=== PATIENT | male | born 1975 | race African-American/Black ===

== ENCOUNTER 2019-12-16 19:17 | Emergency (ER) | payer SELFPAY ==
[2019-12-16 19:23] VITALS: BP 163/109; PULSE 99; RESP 20; TEMP 37.7; O2SAT 98
[2019-12-16 19:50] LABS: Add Urine Microscopic? YES; Amorphous Sediment Urine Few; Appearance Urine Cloudy (Clear); Bacteria Urine Trace /hpf; Bilirubin Urine Negative (Negative); Blood Urine 2+ (Negative); Color Urine Yellow (Yellow); Glucose Urine UA Negative (Negative); Ketones Urine Negative (Negative); Leukocyte Esterase Ur 3+ LEU/UL (Negative); Nitrate Urine Negative (Negative); Protein Urine 3+ mg/dL (Negative); RBC Urine >75 /hpf (0-2); Specific Grav Ur 1.024 (1.001-1.035); Urobilinogen Urine Negative mg/dL (<2.0); WBC Clumps Urine Present /HPF; WBC Urine >75 /hpf
--- NOTE | 2019-12-16 20:02 | ED.ABDPAIN ---
HPI - Abdominal Pain General Chief Complaint: Abdominal Pain Stated Complaint: Abd Pain Time Seen by Provider: 12/16/19 19:59 Source: patient and RN notes reviewed Mode of arrival: other Limitations: no limitations History of Present Illness HPI narrative: Pt is a 44 y/o male who presents to the ED with c/o lower abdominal burning pain that radiates to his bilateral flanks and to his groin. He states that his pain began two days ago. He notes that he had a normal BM today. He states that he had unprotected sex with multiple partners and he states that his girlfriend is also having abdominal pain. Pt also reports nausea, dysuria, dark colored urine with hematuria, urinary retention, urinary urgency, chills, diaphoresis, and poor appetite, but denies a fever, vomiting, penile discharge, diarrhea, constipation, back pain, testicular pain, testicular swelling, blood in his stools, and testicular sores. MD elicited complaint: abdominal pain Onset (ago): day(s) (2) Pain Consistency: constant Location: other (lower) Quality: burning Radiation: L flank, R flank and other (groin) Context: confirms other (unprotected sex with multiple partners) Associated symptoms: nausea, chills, dysuria, hematuria (with dark colored urine) and other (urinary retention, urinary urgency, diaphoresis, poor appetite) Related Data Allergies Allergy/AdvReac Type Severity Reaction Status Date / Time No Known Allergies Allergy Verified 12/16/19 19:36 Review of Systems Review of Systems: All systems reviewed & are unremarkable except as noted in HPI and below Constitutional: Constitutional: Reports chills, Denies fever(s) and Reports poor appetite Cardiovascular: Cardiovascular: Reports diaphoresis Gastrointestinal: Gastrointestinal: Reports abdominal pain (lower, burning, radiates to his bilateral flanks and his groin), Denies hematochezia, Denies constipation, Denies diarrhea, Reports nausea and Denies vomiting Genitourinary: Genitourinary: Reports hematuria (in his dark colored urine), Reports dysuria, Denies penile discharge, Denies scrotal swelling, Denies testicular pain, Reports urinary urgency and Reports other (Reports: urinary retention; Denies: testicular sores) Musculoskeletal: Musculoskeletal: Denies back pain [facility] Past Medical History Medical History (Updated 12/17/19 @ 00:00 by Background Daemon) DDD (degenerative disc disease) HTN (hypertension) Hyperlipidemia Surgical History Surgical History (Updated 12/16/19 @ 20:18 by Jackie De La Rosa) H/O right knee surgery repairing torn ligament and cartilage Hx of fusion of cervical spine C5-7 Social History Social History (Updated 12/16/19 @ 20:19 by Jackie De La Rosa) Smoking status: Current every day smoker Tobacco type: cigarettes Additional smoking assessment comments: Pt states that he smokes 1 pack every other day. Alcohol intake: never Substance use: never Gender identity (if verbalized by the patient): Male Exam Narrative: Exam Narrative: GENERAL: Well-appearing, well-nourished, and in no acute distress. HEAD: Normocephalic, atraumatic EYES: PERRLA and EOMI, conjunctiva clear without discharge THROAT:Mucous membranes moist, Oropharynx normal without erythema, exudate, peritonsillar swelling or fluctuance NECK: Supple, without lymphadenopathy or mass RESPIRATORY: No respiratory distress, Airway patent, Respirations non-labored, Clear to auscultation without rales, rhonchi or wheeze HEART: Regular rate and rhythm. No murmur heard. Normal peripheral pulses. ABDOMEN: Soft, suprapubic, nondistended, normal active bowel sounds. No masses. No rebound or guarding, No organomegaly. EXTREMITIES: No edema, normal strength with full range of motion. SKIN: Warm, dry, normal color without rash NEURO: Alert and oriented x3. CN 2-12 grossly intact. No focal deficits. PSYCH: Normal mood and affect. : Meatus: meatal discharge (yellow milky) Testes: no te
[2019-12-16] MEDS: ONDANSETRON HCL ODT 4 MG TABLET PO (20:40)
[2019-12-16] MEDS: DOXYCYCLINE HYCLATE 100 MG TABLET PO (20:40)
[2019-12-16] MEDS: KETOROLAC (*BKC) 60 MG/2 ML VIAL IM (20:40)
[2019-12-16] MEDS: cefTRIAXone 250 MG VIAL IM (20:40)
[2019-12-16] MEDS: LIDOCAINE HCL 1% LOCAL INJ 20 ML VIAL (20:41)
[2019-12-16 20:58] LABS: Basophils Percent Auto 0.3 % (0.2-1.2); Eosinophils Absolute Auto 0.4 K/mm3 (0-0.3); Hematocrit 43.2 % (42.0-52.0); Hemoglobin 13.8 g/dL (14.0-18.0); Immature Granulocyte Absolute 0.04 K/mm3 (0.00-0.031); Immature Granulocyte Percent A 0.5 % (0-0.5); Lymphocytes Absolute Auto 1.35 K/mm3 (0.9-3.2); Lymphocytes Percent Auto 15.7 % (18.3-44.2); Mean Corpuscular HGB Conc 31.9 g/dl (32-36); Mean Corpuscular Hemoglobin 26.7 pg (26-34); Mean Corpuscular Volume 83.6 fl (80-100); Mean Platelet Volume 10.6 fl (7.4-10.4); Monocytes Absolute Auto 0.5 K/mm3 (0.1-0.6); Monocytes Percent Auto 5.9 % (2.6-8.5); Neutrophils Absolute Auto 6.2 K/mm3 (1.3-6.7); Neutrophils Percent Auto 72.6 % (45.5-73.1); Platelet Count Result 207 k/mm3 (150-375); Red Blood Count 5.17 M/mm3 (4.6-6.20); Red Cell Distribution Width 13.3 % (11.5-14.5); White Blood Count 8.6 K/mm3 (4.5-10.0)
[2019-12-16 21:09] LABS: Alanine Aminotransferase 21 U/L (4-50); Albumin Level 4.3 g/dL (3.5-5.1); Alkaline Phosphatase 93 U/L (38-126); Aspartate Amino Transferase 26 U/L (17-59); Bilirubin,Total 0.3 mg/dL (0.2-1.3); Blood Urea Nitrogen 16 mg/dL (9-20); Calcium 9.4 mg/dL (8.4-10.2); Carbon Dioxide 33 mmol/L (22-30); Chloride 102 mmol/L (98-107); Estimated CRCL calculation 71 ml/min; Estimated Glomerular Filt Rate > 60; Glucose 114 mg/dL (75-110); Lipase 83 U/L (23-300); Potassium 4.5 mmol/L (3.4-5.0); Sodium 143 mmol/L (137-145)
[2019-12-16 21:56] VITALS: BP 168/97; PULSE 98; RESP 16; O2SAT 99
== END 2019-12-16 22:00 | disposition home or self-care (01) ==
PROVIDERS: Emergency Medicine; Emergency Medicine Emergency Medical Services; Emergency Provider General Practice
DX: N41.0 Acute prostatitis (principal); R31.9 Hematuria, unspecified; I10 Essential (primary) hypertension; E78.5 Hyperlipidemia, unspecified; F17.210 Nicotine dependence, cigarettes, uncomplicated
CPT/HCPCS: 36415; 80053; 81001; 83690; 85025; 87086; 87491; 87591; 96372; 99284; A9270; J0696; J1885